=== PATIENT | female | born 1995 | race Two or more races ===

== ENCOUNTER → 2021-04-10 | Outpatient (CLI) | payer SELFPAY | LOC: M LABSMTC 09:43 | PROVIDERS: ATTEND Pediatrics | DX: Z20.822 Contact with and (suspected) exposure to COVID-19 (principal) ==

== ENCOUNTER → 2021-04-11 | Outpatient (CLI) | payer SELFPAY | LOC: M LABSMTC 09:35 | PROVIDERS: ATTEND Pediatrics | DX: Z20.822 Contact with and (suspected) exposure to COVID-19 (principal) ==